=== PATIENT | male | born 1955 | race Caucasian/White ===

== ENCOUNTER → 2018-06-26 16:40 | Outpatient (REF) | payer OTHER, SELFPAY ==
[2018-06-26 20:12] LABS: ALT 49 U/L (12-78); CREATININE 0.99 mg/dL (0.70-1.30); LDL CHOLESTEROL 83 mg/dL (<100)
== END ==
LOC: NCHCN 16:40
PROVIDERS: PCP Internal Medicine; Visit Provider Internal Medicine
DX: Z00.00 Encounter for general adult medical examination without abnormal findings (principal); Z13.220 Encounter for screening for lipoid disorders; Z13.29 Encounter for screening for other suspected endocrine disorder
CPT/HCPCS: 83721; 82565; 84132; 84460

== ENCOUNTER 2019-07-08 19:21 | Outpatient (REF) | payer OTHER, SELFPAY ==
[2019-07-09 00:19] LABS: ALT 41 U/L (12-78); Anion Gap 10.9 mmol/L (3-11); BUN 24 mg/dL (7-18); CO2 26.1 mmol/L (21.0-32.0); Calcium 9.5 mg/dL (8.5-10.1); Chloride 104 mmol/L (98-107); Glucose 91 mg/dL (70-100); LDL CHOLESTEROL 94 mg/dL (<100); Potassium 4.1 mmol/L (3.5-5.1); Sodium 141 mmol/L (136-145); TSH 5.39 uIU/mL (0.36-3.74); Vitamin B12 638 pg/mL (193-986)
[2019-07-12 13:36] LABS: Albumin 63.7 % (55.8-66.1); Total Protein 7.4 g/dl (6.3-8.2)
== END 2019-07-08 19:41 ==
LOC: NCHCN 19:21
PROVIDERS: PCP Internal Medicine; Visit Provider Internal Medicine
DX: E78.5 Hyperlipidemia, unspecified (principal); G60.9 Hereditary and idiopathic neuropathy, unspecified; Z00.00 Encounter for general adult medical examination without abnormal findings
CPT/HCPCS: 80048; 83721; 82607; 84165; 84443; 84460

== ENCOUNTER 2020-07-12 09:30 | Outpatient (REF) | payer OTHER, SELFPAY ==
[2020-07-12 22:19] LABS: ALT 58 U/L (16-63); Anion Gap 8.1 mmol/L (3-11); BUN 17 mg/dL (7-18); CO2 28.9 mmol/L (21.0-32.0); CREATININE 0.98 mg/dL (0.70-1.30); Calcium 9.2 mg/dL (8.5-10.1); Chloride 104 mmol/L (98-107); Creatine Kinase 254 U/L (39-308); Glucose 103 mg/dL (74-106); Magnesium 2.1 mg/dL (1.8-2.4); Potassium 4.9 mmol/L (3.5-5.1); Sodium 141 mmol/L (136-145)
[2020-07-17 11:45] LABS: Testosterone, Free 9.23 ng/dL (3.67-13.9); Testosterone, Total 615 ng/dL (240-950)
== END 2020-07-12 09:50 ==
LOC: NCHCN 09:30
PROVIDERS: PCP Internal Medicine; Visit Provider Internal Medicine
DX: R07.9 Chest pain, unspecified (principal); E78.5 Hyperlipidemia, unspecified; F52.21 Male erectile disorder
CPT/HCPCS: 80048; 82550; 84402; 84403; 83735; 84460

== ENCOUNTER 2022-07-15 16:00 | Outpatient (REF) | payer MEDICARE, OTHER, SELFPAY ==
[2022-07-15 20:26] LABS: ALT 48 U/L (16-63); CREATININE 0.9 mg/dL (0.70-1.30); Calculated LDL 66 mg/dL (<100); Cholesterol 151 mg/dL (<200); Glucose 93 mg/dL (74-106); HDL Cholesterol 55 mg/dL (40-60); Triglyceride 151 mg/dL (<150)
[2022-07-15 20:46] LABS: Creatine Kinase 162 U/L (39-308)
== END 2022-07-15 16:01 | disposition home or self-care (01) ==
LOC: NCHCN 16:00
PROVIDERS: PCP Internal Medicine; Visit Provider Internal Medicine
DX: E78.5 Hyperlipidemia, unspecified (principal)
CPT/HCPCS: 80061; 82550; 82947; 82565; 84460

== ENCOUNTER 2023-07-17 16:21 | Outpatient (REF) | payer MEDICARE, SELFPAY ==
[2023-07-17 19:24] LABS: ALT 44 U/L (16-63); Anion Gap 8.7 mmol/L (3-11); BUN 21 mg/dL (7-18); CO2 26.3 mmol/L (21.0-32.0); CREATININE 1.1 mg/dL (0.70-1.30); Calcium 9.4 mg/dL (8.5-10.1); Chloride 106 mmol/L (98-107); Creatine Kinase 180 U/L (39-308); Estimated GFR 73.58 (mL/min/1.73m2); Glucose 103 mg/dL (74-106); Sodium 141 mmol/L (136-145)
[2023-07-17 19:39] LABS: Calculated LDL 54 mg/dL (<100); Cholesterol 147 mg/dL (<200); HDL Cholesterol 59 mg/dL (40-60); Triglyceride 170 mg/dL (<150)
== END 2023-07-17 16:22 | disposition home or self-care (01) ==
LOC: NCHCN 16:21
PROVIDERS: PCP Internal Medicine; Visit Provider Internal Medicine
DX: E78.5 Hyperlipidemia, unspecified (principal)
CPT/HCPCS: 80048; 80061; 82550; 84460

== ENCOUNTER 2024-07-19 18:18 | Outpatient (REF) | payer MEDICARE, SELFPAY ==
--- OUTSIDE RECORDS SUMMARY | 2024-07-19 18:21 | XMS_ITS | Data Portability ---
Author Organization [place] - [facility] Address [address] [address] Assessment No assessment recorded. Plan of Treatment Reminders Order Date Submit Date Provider Last Modified By Organization Details Last Modified Time Details Appointments Annual Wellness Exam 2023 02:30P M Not available Not available Not available Annual Wellness Exam 2024 02:30P M Not available Not available Not available Lab lipid panel, blood 2023 024 [email or web address] [facility] (Registration ), [address] [place] [address] [place], [address], 07/19/2024 15:53:35 BMP, serum or plasma 2023 024 [email or web address] [facility] (Registration ), [address] [place] [address] [place], [address], 07/19/2024 15:53:35 ALT (alanine aminotran sferase), serum or plasma 2023 024 [email or web address] [facility] (Registration ), [address] [place] [address] [place], [address], 07/19/2024 15:53:35 CK (creatine kinase), total, serum 2023 024 [email or web address] [facility] (Registration ), [address] [place] [address] [place], [address], 07/19/2024 15:53:35 Referral None recorded. Procedures None recorded. Surgeries None recorded. Imaging None recorded. Medication Orders carbamide peroxide 6.5 % ear drops 2023 024 [facility], [address] [facility], [place], [address], 07/19/2024 14:38:00 Patient TargetsNo targets recorded. Patient InstructionsNo instructions recorded. Reason for Referral None Reported. 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 Problem Code: Z91.030; Problem Code Type: ICD-10; Not Available [facility] 04:15:17 Adult health examination Active 201707/17/2023 - Comments only - Yobani Marie MD - PCV 20 now. Apparently has had a colonoscopy since the last one that we have on record, which was 2010. We will send for that record. Problem Code: Z00.00; Problem Code Type: ICD-10; Not Available [facility] 04:15:17 Counseling Active 201706/27/2018 - Comments only - Yobani Marie MD - CPRD if a good chance of neuro recovery. Problem Code: Z71.89; Problem Code Type: ICD-10; Not Available [facility] 3 04:15:17 Insect bite Completed 201806/02/2019 04/21/2019 - Comments only - Devon Mendoza PA-C - Tick bite on unknown duration but somewhere in the 24 to 48-hour range. Single dose doxy. Reviewed risks and benefits. Reviewed signs and symptoms of Lyme disease. Follow-up as needed. Not Available [facility] 3 04:15:18 Other idiopathic peripheral neuropathy NOS Active 201807/09/2019 - Comments only - Yobani Marie MD - Reviewed reviewed the nature of this at length. I recommend screening for the readily treatable issues but not going on a prolonged search, since he is asymptomatic. Not Available [facility] 3 04:15:18 Family history of substance abuse Active 2019 Problem Code: Z81.1; Problem Code Type: ICD-10; Not Available [facility] 3 04:15:18 Bursitis of olecranon of right elbow Active 201901/17/2020 - Comments only - Marisela Morrison NP - Discussed treatment including watchful waiting with compression and NSAID's vs. drainage. Disadvantages to draining include infection risk and that the sac could fill back up. was happy to hear that this could resolve on its own and prefers to defer aspiration for now. He will use compression, NSAID's and rest his arms. If not improving he will call for an appointment to have this aspirated. Signs of infection reviewed and he will call with any changes. Problem Code: M70.21; Problem Code Type: ICD-10; Not Available [facility] 3 04:15:18 Erectile dysfunction Active 201907/11/2020 - Comments only - Yobani Marie MD - Nothing abnormal on exam, no evidence for significant neurologic dysfunction or vascular disease. With we will get an a.m. testosterone. Offered him Levitra, he is going to consider that. Problem Code: F52.21; Problem Code Type: ICD-10; Not Available [facility] 3 04:15:18 Chest pain Active 201907/17/2023 - Comments only - Yobani Marie MD - Atypical, stress testing negative. Problem Code: R07.9; Problem Code Type: ICD-10; Not Available [facility] 3 04:15:18 Lateral epicondylitis of left humerus Active 201910/04/2020 - Comments only - Yobani Marie MD - Resolved Problem Code: M77.12; Problem Code Type: ICD-10; Not Available [facility] 3 04:15:18 Low back pain Active 202107/16/2022 - Comments only - Yobani Marie MD - Improving and no red flags Problem Code: M54.59; Problem Code Type: ICD-10; Not Available [facility] 3 04:15:18 Actinic keratosis Active 202107/17/2023 - Comments only - Yobani Marie MD - Liquid nitrogen for 50 seconds applied to 2 AK's on his scalp, no complication. Problem Code: L57.0; Problem Code Type: ICD-10; Not Available [facility] 3 04:15:18 Acute non-infective otitis externa Completed 202206/18/2023 Problem Code: H60.501; Problem Code Type: ICD-10; Not Available [facility] 3 04:15:19 Gastroesophag eal reflux disease without esophagitis Active 201507/12/2021 - Comments only - Yobani Marie MD - Minimally symptomatic, I do not think he needs other follow-up. Problem Code: K21.9; Problem Code Type: ICD-10; Not Available [facility] 3 04:15:19 Hyperlipidemi a Active 201507/17/2023 - Comments only - Yobani Marie MD - Continue atorvastatin. Check lipids and BMP now Problem Code: E78.5; Problem Code Type: ICD-10; Not Available [facility] 3 04:15:19 Essential hypertension Completed 201506/20/2017 Problem Code: I10; Problem Code Type: ICD-10; Not Available [facility] 3 04:15:19 Glaucoma Completed 201506/20/2017 Problem Code: H40.9; Problem Code Type: ICD-10; Not Available [facility] 3 04:15:19 Osteoarthriti s Active [address], [place], [address] , [facility]. 4 15:49:05 Idiopathic osteoarthriti s Active [address], [place], [address] , [facility] 4 15:50:02 Problem Notes None recorded. Procedures Surgical History Date Name Laterality Status Provider Name and Address Organization Details Recorded Time 4 Cerumen Removal completed Tori Toscano PA-C [address], [place], [address], [facility] 04/01/2024 15:31:52 2 colonoscopy completed MERLIN EMMANUEL LPN [facility], [facility] 07/15/2024 09:54:10 Imaging Results None recorded. Procedure Notes None recorded. Medical Equipment None Reported. Allergies Allergen ID Allergen Name Allergen Category Reaction Reaction Severity Criticality Documentation Date Start Date Code Code System Note Provider Name and Address Organization Details Recorded Time 65231 wasp venoms environme nt Not available Not available Not available 10/03/20232015 49863 RxNorm Aller gyNam e: 'BEE STING S'; Not Available [facility] 3 16:26:07 Medications Name Sig Start Date Stop Date Status Note LastModified by Organization Details LastModified Time multivitami n tablet Take 1 tablet by mouth once a day active Not Available Not Available No t Available Protonix 40 mg tablet,prabhakar yed release Take 1 tablet by mouth once a day 07/12 completed Not Available Not Available Not Available atorvastati n 20 mg tablet TAKE 1 TABLET DAILY AT BEDTIME 2023 active Not Available Not Available Not Avai lable Vitamin C 500 mg tablet Take 1 mg every day by oral route. active Not Available Not Available No t Available ciprofloxac in 500 mg tablet TAKE ONE TABLET BY MOUTH TWICE A DAY FOR 5 DAYS 07/19 completed Not Available Not Available Not Available amoxicillin 875 mg tablet take 1 tab by mouth twice daily 06/20 completed Not Available Not Available Not Available simvastatin 20 mg tablet Take 1 tab by mouth daily at bedtime 2016 active Not Available Not Available Not Avai lable carbamide peroxide 6.5 % ear drops INSTILL 5 DROPS INTO AFFECTED EAR(S) BY OTIC ROUTE 2 TIMES PER DAY 07/19 completed Not Available Not Available Not Available Aspir-81 mg tablet,prabhakar yed release Take 1 tab by mouth daily 02/12 completed Not Available Not Available Not Available doxycycline hyclate 100 mg tablet Take 2 tabs po X 1 now 07/08 completed Not Available Not Available Not Available Fish Oil 1,000 mg capsule Take 1 tablet by mouth daily 2016 active Not Available Not Available Not Avai lable Ciprodex 0.3 %-0.1 % ear drops,suspe nsion Instill 4 drop into right ear twice a day for 7-10 days, no more than 10 days 06/27 completed Not Available Not Available Not Available Fish Oil 340 mg-1,000 mg capsule Take 1 tablet by mouth once a day 2016 active Not Available Not Available Not Avai lable glucosamine -msm-chondr oit-hrb 149-hyalur 500 mg-500 mg-66.7 mg tablet 500/400 1 tab daily. 07/10 completed Not Available Not Available Not Available Probiotic 10 billion cell capsule 1 tablet by mouth once a day 2019 active Not Available Not Available Not Avai lable Probiotic 1 tab daily 2019 active Not Available Not Available Not Avai lable EpiPen 2-Yossi 0.3 mg/0.3 mL injection, auto-inject or Use 1 pen injector intramusc ularly single dose as needed for allergic reaction 2020 active Not Available Not Available Not Avai lable Vitals Date Recorded Body height Body mass index (BMI) Body weight Body temperature Oxygen saturation Oxygen saturation in Arterial blood by Pulse oximetry Heart rate Respiratory rate Systolic blood pressure Diastolic blood pressure Provider Name and Address Organization Details Last Updated DateTime 4 177.8 cm 26.5 kg/m2 80962.5 9 g 96.8 [degF] 95 % 95 % 85 /min 19 /min 126 mm[Hg] 68 mm[Hg] Nathalie Bonilla [facility]. 4 14:50:19 Date Recorded Body height Body mass index (BMI) Body weight Oxygen saturation Oxygen saturation in Arterial blood by Pulse oximetry Heart rate Systolic blood pressure Diastolic blood pressure Provider Name and Address Organization Details Last Updated DateTime 175.9 cm 27.3 kg/m2 38343.5 2 g 95 % 95 % 89 /min 132 mm[Hg] 72 mm[Hg] Mingo Ramirez RN [facility] 14:42:31 Social History Question Answer Notes LastModified by Organizat ion Details LastModified Time Tobacco Smoking Status Never Smoker Nathalie moe, [facility] 04/01/2024 14:52:06 Would You Say That, In General, Your Health Is Very Good [email or web address] Information not available 07/19/2024 How Often Does Anyone, Including Family, Physically Hurt You? Never [email or web address] Information not available 07/19/2024 How Often Does Anyone, Including Family, Insult Or Talk Down To You? Never [email or web address] Information no t available 07/19/2024 How Often Does Anyone, Including Family, Threaten You With Harm? Never [email or web address] Information not available 07/19/2024 How Often Does Anyone, Including Family, Scream Or Curse At You? Never [email or web address] Information not available 07/19/2024 Within The Past 12 Months, You Worried That Your Food Would Run Out Before You Got Money To Buy More. Never True Information n ot available 07/19/2024 Within The Past 12 Months, The Food You Bought Just Didn't Last And You Didn't Have Money To Get More. Never True [email or web address] Information not available 07/19/2024 How Hard Is It For You To Pay For The Very Basics Like Food, Housing, Medical Care, And Heating? Would You Say It Is: Not Hard At All [email or web address] Information not available 07/19/2024 In The Past 12 Months, Has Lack Of Reliable Transportation Kept You From Medical Appointments, Meetings, Work Or From Getting Things Needed For Daily Living? No [email or web address] Information not available 07/19/2024 What Is Your Housing Situation Today? I Have Housing. [email or web address] Information not available 07/19/2024 How Often In The Past Year Have You Used Marijuana (including Smoking, Vaping, Dabbing, Or Edibles)? Never [email or web address] Information not available 07/19/2024 How Often In The Past Year Have You Used Prescription Medications That Were Not Prescribed To You? Never [email or web address] Information not available 07/19/2024 How Often In The Past Year Have You Taken Your Own Prescription Medication More Than The Way It Was Prescribed Or For Different Reasons Than Its Intended Purpose? Never [email or web address] Information not available 07/19/2024 How Often In The Past Year Have You Used Other Drugs (for Example, Heroin, Cocaine, Meth, Salvia, Inhalants)? Never [email or web address] Information not available 07/19/2024 Have You Ever Used IV Drugs? No [email or web address] Information not available 07/19/2024 Date Of Most Recent SBINS 07/19/2024 [email or web address] Information not available 07/19/2024 What Was The Date Of Your Most Recent Tobacco Screening? 07/19/2024 [email or web address] Information n ot available 07/19/2024 Has Tobacco Cessation Counseling Been Provided? No Information not available 04/01/2024 Do You Or Have You Ever Used Any Other Forms Of Tobacco Or Nicotine? No Information not available 04/01/2024 Sex: Male Functional Status None recorded. Mental Status None recorded. Family History Relationship Description Onset Age of this Age Resolved Age Notes Father Family history of Hypertension Brother Family history of alcoholism Notes:*Problem: 06/20/17 Fat her had glaucoma. Both parents lived late. Medical History No medical history recorded. Immunizations Vaccine Type Date Status Provider Name and Address Organization Details Recorded Time Tdap 07/19/2024 completed MD [address], [place], [address], [facility] 07/19/2024 15:50:43 Tdap 11/25/2013 completed Not Available [facility] 05:28:52 zoster live 06/20/2017 completed Not Available [facility] 10/03/2023 05:28:52 Influenza, split virus, trivalent, preservative 09/20/2016 completed Not Available [facility] 10/03/2023 05:28:53 zoster recombinant 11/26/2018 completed Not Available [facility] 10/03/2023 05:28:53 zoster recombinant 06/26/2018 completed Not Available [facility] 10/03/2023 05:28:53 COVID-19, mRNA, LNP-S, PF, 100 mcg/0.5mL dose or 50 mcg/0.25mL dose 02/22/2021 completed Not Available [facility] 10/03/2023 05:28:53 SARS-COV-2 (COVID-19) vaccine, UNSPECIFIED 01/26/2021 completed Not Available [facility] 10/03/2023 05:28:53 SARS-COV-2 (COVID-19) vaccine, UNSPECIFIED 04/04/2022 completed Not Available [facility] 10/03/2023 05:28:54 SARS-COV-2 (COVID-19) vaccine, UNSPECIFIED 09/17/2021 completed Not Available [facility] 10/03/2023 05:28:54 Pneumococcal conjugate PCV20, polysaccharide [id number] conjugate, adjuvant, PF 07/17/2023 completed Not Available [facility] 10/03/2023 05:28:54 influenza, unspecified formulation 08/24/2019 completed Not Available [facility] 10/03/2023 05:28:54 influenza, unspecified formulation 09/19/2020 completed Not Available [facility] 10/03/2023 05:28:54 Past Encounters Encounter ID Performer Location Encounter Start Date Encounter Closed Date Diagnosis/Indication Diagnosis SNOMED-CT Code [id number] Tori Toscano PA-C [address] [place] [address] 04/01/2024 14:43:38 04/01/2024 15:09:43 Impacted cerumen of bilateral ears [id number] YOBANI MARIE MD [facility] [address] [place] [address] 07/19/2024 14:28:51 07/19/2024 15:37:31 Adult health examination 284950064 Screening for cardiovascular system disease 848528449 Active or passive immunization 175739038 Actinic keratosis 968944 007 Erectile dysfunction 860 039268 Hyperlipidemia 34734521 Osteoarthritis 990216914 Health Concerns Section Related Observation LastModified by Organization Detai ls LastModified Time None Recorded Concern Status LastModified by Organization Details LastModified Time None Recorded Advance Directives Directive None Recorded Payers Encounter Date Sequence Insurance Name Policy Number Policy Gomes Covered Member ID Gomes Member ID Guarantor Name 04/01/2024 1 MEDICARE [place]: [employer] [address] [id number] 04/01/2024 2 [employer] (MEDICARE SUPPLEMENT) [address]jay [address] [id number] [address] 07/19/2024 1 [place] [employer] [address]jya Lane [id number] 07/19/2024 2 [employer] (MEDICARE SUPPLEMENT) Sanjay Lane [id number] [address] Notes Date Note Type Note Provider Name and Address Organization Details Recorded Time 04/01/2024 text/html HPI Notes: PT is a 68 y/o M 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 Denies ear pain, URI sxs, ear drainage, fever, dizziness. [address], [place], [address], [facility]. 04/01/2024 15:32:29 07/19/2024 text/html HPI Notes: hme Active 68 yo man has several concerns: He had left shoulder surgery about 8 years ago with fair results. Never got full range of motion back but has been able to play golf and do his work without difficulty. In the last few months he has had occasional significant pain in that shoulder. This is very difficult to predict, comes and goes over a span of hours. Happens most often after has been playing golf especially if he tries to drive hard. There is no associated numbness or weakness. He is still playing regularly, and does not feel ready to go back to the orthopedist. Has mild ED. He notes read reduced experience of climax, wonders about medications. No history of neuropathy, claudication, loss of strength or energy. Has stable nocturia 0-2 times per night, no hesitancy, no hematuria. No change in bowel habits. No significant dyspnea or cough. He has a history of transient bouts of very brief anterior chest pain, nonexertional. Those have actually improved this summer. MD [address], [place], [address], [facility]. 07/19/2024 15:53:28
--- OUTSIDE RECORDS SUMMARY | 2024-07-19 18:21 | XMS_ITS | Continuity of Care Document ---
Author Organization [place] - [facility] Address [address] [place] [address] Assessment No assessment recorded. Plan of Treatment Reminders Order Date Submit Date Provider Last Modified By Organization Details Last Modified Time Details Appointments Annual Wellness Exam 2023 02:30P M Not available Not available Not available Annual Wellness Exam 2024 02:30P M Not available Not available Not available Lab lipid panel, blood 2023 024 [email or web address] [facility] (Registration ), [address] [place] [address] [place], [address], 07/19/2024 15:53:35 BMP, serum or plasma 2023 024 [email or web address] [facility] (Registration ), [address] [place] [address] [place], [address], 07/19/2024 15:53:35 ALT (alanine aminotran sferase), serum or plasma 2023 024 [email or web address] [facility] (Registration ), [address] [place] [address] [place], [address], 07/19/2024 15:53:35 CK (creatine kinase), total, serum 2023 024 [email or web address] [facility] (Registration ), [address] [place] [address] [place], [address], 07/19/2024 15:53:35 Referral None recorded. Procedures None recorded. Surgeries None recorded. Imaging None recorded. Medication Orders None recorded. Patient TargetsNo targets recorded. Patient InstructionsNo instructions recorded. Reason for Referral None Reported. 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 Problem Code: Z91.030; Problem Code Type: ICD-10; Not Available [facility] 3 04:15:17 Adult health examination Active 201707/17/2023 - Comments only - Yobani Marie MD - PCV 20 now. Apparently has had a colonoscopy since the last one that we have on record, which was 2010. We will send for that record. Problem Code: Z00.00; Problem Code Type: ICD-10; Not Available [facility] 3 04:15:17 Counseling Active 201706/27/2018 - Comments only - Yobani Marie MD - CPRD if a good chance of neuro recovery. Problem Code: Z71.89; Problem Code Type: ICD-10; Not Available [facility] 3 04:15:17 Insect bite Completed 201806/02/2019 04/21/2019 - Comments only - Devon Mendoza PA-C - Tick bite on unknown duration but somewhere in the 24 to 48-hour range. Single dose doxy. Reviewed risks and benefits. Reviewed signs and symptoms of Lyme disease. Follow-up as needed. Not Available [facility] 3 04:15:18 Other idiopathic peripheral neuropathy NOS Active 201807/09/2019 - Comments only - Yobani Marie MD - Reviewed reviewed the nature of this at length. I recommend screening for the readily treatable issues but not going on a prolonged search, since he is asymptomatic. Not Available [facility] 3 04:15:18 Family history of substance abuse Active 2019 Problem Code: Z81.1; Problem Code Type: ICD-10; Not Available [facility] 3 04:15:18 Bursitis of olecranon of right [...] M70.21; Problem Code Type: ICD-10; Not Available [facility] 3 04:15:18 Erectile dysfunction Active 201907/11/2020 - Comments only - Yobani Marie MD - Nothing abnormal on exam, no evidence for significant neurologic dysfunction or vascular disease. With we will get an a.m. testosterone. Offered him [email or web address], he is going to consider that. Problem Code: F52.21; Problem Code Type: ICD-10; Not Available [facility] 3 04:15:18 Chest pain Active 201907/17/2023 - Comments only - Yobani Marie MD - Atypical, stress testing negative. Problem Code: R07.9; Problem Code Type: ICD-10; Not Available [facility] 3 04:15:18 Lateral epicondylitis of left humerus Active 201910/04/2020 - Comments only - Yobani Marie MD - Resolved Problem Code: M77.12; Problem Code Type: ICD-10; Not Available [facility] 3 04:15:18 Low back pain Active 202107/16/2022 - Comments only - Yobani Marie MD - Improving and no red flags Problem Code: M54.59; Problem Code Type: ICD-10; Not Available [facility] 3 04:15:18 Actinic keratosis Active 202107/17/2023 - Comments only - Yobani Marie MD - Liquid nitrogen for 50 seconds applied to 2 AK's on his scalp, no complication. Problem Code: L57.0; Problem Code Type: ICD-10; Not Available [facility] 3 04:15:18 Acute non-infective otitis externa Completed 202206/18/2023 Problem Code: H60.501; Problem Code Type: ICD-10; Not Available [facility] 3 04:15:19 Gastroesophag eal reflux disease without esophagitis Active 201507/12/2021 - Comments only - Yboani Marie MD - Minimally symptomatic, I do not think he needs other follow-up. Problem Code: K21.9; Problem Code Type: ICD-10; Not Available [facility] 3 04:15:19 Hyperlipidemi a Active 201507/17/2023 - Comments only - Yobani Marie MD - Continue atorvastatin. Check lipids and BMP now Problem Code: E78.5; Problem Code Type: ICD-10; Not Available [facility] 3 04:15:19 Essential hypertension Completed 201506/20/2017 Problem Code: I10; Problem Code Type: ICD-10; Not Available [facility] 3 04:15:19 Glaucoma Completed 201506/20/2017 Problem Code: H40.9; Problem Code Type: ICD-10; Not Available [facility] 3 04:15:19 Osteoarthriti s Active [address], [place], [address] , [facility] 4 15:49:05 Idiopathic osteoarthriti s Active [address], [place], [address] , [facility] 4 15:50:02 Problem Notes None recorded. Procedures Surgical History Date Name Laterality Status Provider Name and Address Organization Details Recorded Time 4 Cerumen Removal completed Tori Toscano PA-C [address], [place], [address], [facility] 04/01/2024 15:31:52 2 colonoscopy completed PATRICK NICOLE, [facility] 07/15/2024 09:54:10 Imaging Results None recorded. Procedure Notes None recorded. Medical Equipment None Reported. Allergies Allergen ID Allergen Name Allergen Category Reaction Reaction Severity Criticality Documentation Date Start Date Code Code System Note Provider Name and Address Organization Details Recorded Time 47401 wasp venoms environme nt Not available Not available Not available 10/03/20232015 63413 RxNorm Aller gyNam e: 'BEE STING S'; Not Available [facility] 3 16:26:07 Medications Name Sig Start Date [...] Address Organization Details Last Updated DateTime 4 175.9 cm 27.3 kg/m2 51046.5 2 g 95 % 95 % 89 /min 132 mm[Hg] 72 mm[Hg] Mingo Ramirez RN [facility] 14:42:31 Social History Question Answer Notes LastModified by Organizat ion Details LastModified Time Tobacco Smoking Status Never Smoker Nathalie moe, [facility] 04/01/2024 14:52:06 Would You Say That, In General, Your Health Is Very Good [email or web address] Information not available 07/19/2024 How Often Does Anyone, Including Family, Physically Hurt You? Never Information not available 07/19/2024 How Often Does Anyone, Including Family, Insult Or Talk Down To You? Never Information no t available 07/19/2024 How Often Does Anyone, Including Family, Threaten You With Harm? Never [email or web address] Information not available 07/19/2024 How Often Does Anyone, Including Family, Scream Or Curse At You? Never Information not available 07/19/2024 Within The Past 12 Months, You Worried That Your Food Would Run Out Before You Got Money To Buy More. Never True [email or web address] Information n ot available 07/19/2024 Within The Past 12 Months, The Food You Bought Just Didn't Last And You Didn't Have Money To Get More. Never True [email or web address] Information not available 07/19/2024 How Hard Is It For You To Pay For The Very Basics Like Food, Housing, Medical Care, And Heating? Would You Say It Is: Not Hard At All [email or web address] Information not available 07/19/2024 In The Past 12 Months, Has Lack Of Reliable Transportation Kept You From Medical Appointments, Meetings, Work Or From Getting Things Needed For Daily Living? No [email or web address] Information not available 07/19/2024 What Is Your Housing Situation Today? I Have Housing. [email or web address] Information not available 07/19/2024 How Often In The Past Year Have You Used Marijuana (including Smoking, Vaping, Dabbing, Or Edibles)? Never [email or web address] Information not available 07/19/2024 How Often In The Past Year Have You Used Prescription Medications That Were Not Prescribed To You? Never Information not available 07/19/2024 How Often In The Past Year Have You Taken Your Own Prescription Medication More Than The Way It Was Prescribed Or For Different Reasons Than Its Intended Purpose? Never [email or web address] Information not available 07/19/2024 How Often In The Past Year Have You Used Other Drugs (for Example, Heroin, Cocaine, Meth, Salvia, Inhalants)? Never Information not available 07/19/2024 Have You Ever Used IV Drugs? No [email or web address] Information not available 07/19/2024 Date Of Most Recent SBINS 07/19/2024 Information not available 07/19/2024 What Was The Date Of Your Most Recent Tobacco Screening? 07/19/2024 [email or web address] Information n ot available 07/19/2024 Has Tobacco [...] Organization Details Recorded Time Tdap 07/19/2024 completed YOBANI MARIE MD [address], [place], [address], [facility] 07/19/2024 15:50:43 Tdap 11/25/2013 completed Not Available [facility] 05:28:52 zoster live 06/20/2017 completed Not Available [facility] 10/03/2023 05:28:52 Influenza, split virus, trivalent, preservative 09/20/2016 completed Not Available [facility] 10/03/2023 05:28:53 zoster recombinant 11/26/2018 completed Not Available [facility] 10/03/2023 05:28:53 zoster recombinant 06/26/2018 completed Not Available [facility] 10/03/2023 05:28:53 COVID-19, mRNA, LNP-S, PF, 100 mcg/0.5mL dose or 50 mcg/0.25mL dose 02/22/2021 completed Not Available [facility] 10/03/2023 05:28:53 SARS-COV-2 (COVID-19) vaccine, UNSPECIFIED 01/26/2021 completed Not Available [facility] 10/03/2023 05:28:53 SARS-COV-2 (COVID-19) vaccine, UNSPECIFIED 04/04/2022 completed Not Available [facility] 10/03/2023 05:28:54 SARS-COV-2 (COVID-19) vaccine, UNSPECIFIED 09/17/2021 completed Not Available [facility] 10/03/2023 05:28:54 Pneumococcal conjugate PCV20, polysaccharide [id number] conjugate, adjuvant, PF 07/17/2023 completed Not Available [facility] 10/03/2023 05:28:54 influenza, unspecified formulation 08/24/2019 completed Not Available [facility] 10/03/2023 05:28:54 influenza, unspecified formulation 09/19/2020 completed Not Available [facility] 10/03/2023 05:28:54 Past Encounters Encounter ID Performer Location Encounter Start Date Encounter Closed Date Diagnosis/Indication Diagnosis SNOMED-CT Code [id number] YOBANI MARIE MD [facility] [address] [place] [address] 07/19/2024 14:28:51 07/19/2024 15:37:31 Adult health examination 611499143 Screening for cardiovascular system disease 630147140 Active or passive immunization 753869779 Actinic keratosis 431097 007 Erectile dysfunction 860 975166 Hyperlipidemia 94970922 Osteoarthritis 504455098 Health Concerns Section Related Observation LastModified by Organization Detai ls LastModified Time None Recorded Concern Status LastModified by Organization Details LastModified Time None Recorded Payers Encounter Date Sequence Insurance Name Policy Number Policy Gomes Covered Member ID Gomes Member ID Guarantor Name 07/19/2024 1 MEDICARE [place]: [employer] [address] [id number] 07/19/2024 2 [employer] (MEDICARE SUPPLEMENT) Sanjay Laen [id number] [address] Notes Date Note Type Note Provider Name and Address Organization Details Recorded Time 07/19/2024 text/html HPI Notes: e Active 68 yo man has several concerns: [...] nonexertional. Those have actually improved this summer. YOBANI MARIE MD [address], [place], [address], [facility]. 07/19/2024 15:53:28
[2024-07-19 19:57] LABS: Creatine Kinase 217 U/L (39-308)
[2024-07-19 20:02] LABS: ALT 55 U/L (16-63); Anion Gap 8.8 mmol/L (3-11); BUN 22 mg/dL (7-18); CO2 26.2 mmol/L (21.0-32.0); Calcium 9.3 mg/dL (8.5-10.1); Calculated LDL 71 mg/dL (<100); Chloride 106 mmol/L (98-107); Cholesterol 166 mg/dL (<200); Estimated GFR 81.98 (mL/min/1.73m2); Glucose 99 mg/dL (74-106); HDL Cholesterol 63 mg/dL (40-60); Sodium 141 mmol/L (136-145); Triglyceride 162 mg/dL (<150)
== END 2024-07-19 18:19 | disposition home or self-care (01) ==
LOC: NCHCN 18:18
PROVIDERS: PCP Internal Medicine; Visit Provider Internal Medicine
DX: Z13.6 Encounter for screening for cardiovascular disorders (principal)
CPT/HCPCS: 80048; 80061; 82550; 84460

== ENCOUNTER 2025-07-20 17:43 | Outpatient (REF) | payer MEDICARE, SELFPAY ==
[2025-07-20 21:38] LABS: ALT 65 U/L (16-63); Anion Gap 9.4 mmol/L (3-11); BUN 16 mg/dL (7-18); CO2 26.6 mmol/L (21.0-32.0); Calcium 9.2 mg/dL (8.5-10.1); Calculated LDL 51 mg/dL (<100); Chloride 106 mmol/L (98-107); Cholesterol 144 mg/dL (<200); Estimated GFR 81.47 (mL/min/1.73m2); Glucose 115 mg/dL (74-106); HDL Cholesterol 61 mg/dL (>or=40); Potassium 4.2 mmol/L (3.5-5.1); Sodium 142 mmol/L (136-145); TSH 3.22 uIU/mL (0.36-3.74); Triglyceride 164 mg/dL (<150)
[2025-07-20 21:56] LABS: Creatine Kinase 300 U/L (39-308)
== END 2025-07-20 17:44 | disposition home or self-care (01) ==
LOC: NCHCN 17:43
PROVIDERS: PCP Internal Medicine; Visit Provider Internal Medicine
DX: E78.5 Hyperlipidemia, unspecified (principal)
CPT/HCPCS: 80048; 80061; 82550; 84439; 84443; 84460

== ENCOUNTER 2025-11-03 18:03 | Outpatient (REF) | payer MEDICARE, SELFPAY ==
[2025-11-03 19:33] LABS: ALT 46 U/L (10-49); AST 36 U/L (<34); Albumin 4.7 g/dL (3.2-5.0); Alkaline Phosphatase 83 U/L (46-116); Anion Gap 9.3 mmol/L (3-11); BUN 20 mg/dL (9-23); Bilirubin, Direct 0.2 mg/dL (<=0.3); Bilirubin, Total 0.6 mg/dL (0.2-1.2); CO2 26.7 mmol/L (20.0-31.0); Calcium 9.8 mg/dL (8.3-10.6); Chloride 105 mmol/L (98-107); Ferritin 170 ng/mL (11-307); Glucose 80 mg/dL (74-106); Potassium 4.1 mmol/L (3.5-5.1); Sodium 141 mmol/L (136-145); Total Protein 7.5 g/dL (5.7-8.2)
[2025-11-03 19:40] LABS: Iron 106 ug/dL (65-175); Total Iron Binding Capacity 357 ug/dL (250-425); Transferrin Sat 30 % (20-55)
[2025-11-04 18:16] LABS: HBs Antibody, Quant <3.1 mIU/mL (See Note); Hepatitis B Surface Ab Negative (See Note)
[2025-11-04 18:56] LABS: Hepatitis C Ab w Rflx HCV PCR Negative (Negative)
[2025-11-04 19:45] LABS: Hep B Core Antibody Negative (Negative)
== END 2025-11-03 18:04 | disposition home or self-care (01) ==
LOC: NCHCN 18:03
PROVIDERS: PCP Internal Medicine; Visit Provider Nurse Practitioner
DX: R94.5 Abnormal results of liver function studies (principal)
CPT/HCPCS: 80048; 80076; 85027; 86704; 86706; 86803; 82728; 83540; 83550